=== PATIENT | male | born 1975 | race Caucasian/White ===

== ENCOUNTER → 2019-03-27 16:16 | Outpatient (CLI) | payer OTHER, SELFPAY ==
[2019-03-27 17:47] LABS: Absolute Lymphocyte Count 1.54 X10^3/ul (0.83-4.51); Absolute Neutrophil Count 2.2 X10^3/uL (2.0-7.7); Basophil# 0.02 X10^3/uL; Basophil% 0.4 % (0-1); Eosinophil# 0.24 X10^3/uL; Eosinophils% 5.2 % (0-5); Hematocrit 44.4 % (40-54); Hemoglobin 15.5 g/dl (13.0-16.5); Lymphocyte # 1.54 X10^3/ul (4.0); Lymphocyte % 33.3 % (19-41); Mean Corp Hgb Conc 34.9 g/gl (32-36); Mean Corpuscular Hgb 31.6 pg (27.0-32.0); Mean Corpuscular Volume 90.6 fL (80-94); Mean Platelet Vol. 10.1 fl (6.2-12.0); Monocyte# 0.62 X10^3/uL; Monocyte% 13.4 % (0-10); Neutrophil % 47.7 % (47-70); Platelet Count 209 K/mm3 (150-450); RBC Distribution Width SD 42.4 fl (35.1-43.9); White Blood Count 4.6 K/mm3 (4.4-11.0)
[2019-03-27 17:57] LABS: POSITIVE COUNT NO; POSITIVE DIFFERENTIAL NO; POSITIVE MORPHOLOGY NO
[2019-03-27 18:15] LABS: ALB/GLOB Ratio 1.1 RATIO (0.9-2.4); AST(SGOT) 27 U/L (15-37); Alanine Aminotransfer ALT/SGPT 34 U/L (16-61); Alkaline Phosphatase 54 U/L (45-117); Anion Gap 6 (5-15); BUN 12 mg/dL (7-18); BUN/Creat Ratio 11.7 RATIO (10-20); Calcium,Total 8.6 mg/dL (8.5-10.1); Chloride 107 mmol/L (98-107); Creatinine, Serum 1.03 mg/dL (0.70-1.30); EST Glomerular Filtration Rate 84 mL/min (>60); Est Glom Filt Rate - Afr Amer 102 mL/min (>60); Globulin 3.5 g/dL (2.2-4.2); Glucose 75 mg/dL (74-106); Potassium 4.2 mmol/L (3.5-5.1); Protein, Total 7.5 g/dL (6.4-8.2); Sodium Level 141 mmol/L (136-145); Thyroid Stim Hormone (TSH) 0.94 uIU/mL (0.358-3.74)
[2019-03-27 19:19] LABS: Vitamin B12 356 pg/mL (211-911)
== END ==
PROVIDERS: Family Provider Family Medicine; PCP Family Medicine; Referring Provider Family Medicine; Visit Provider Family Medicine
DX: J43.9 Emphysema, unspecified (principal); R53.83 Other fatigue
CPT/HCPCS: 36415; 80053; 82306; 82607; 84403; 84443; 85025

== ENCOUNTER → 2020-08-05 14:23 | Outpatient (CLI) | payer OTHER, SELFPAY ==
--- NOTE | 2020-08-05 14:30 | RAD_ITS ---
STUDY: X-RAY - RIGHT FOOT CLINICAL: Male, 44 years old. Pain lateral and top of foot. Possible injury 3-4 months ago. TECHNIQUE: 3 view(s) of the foot with weightbearing. COMPARISON: None. FINDINGS: Normal talus, calcaneus, and tarsal bones. Normal visualized subtalar, talonavicular, calcaneocuboid, tarsal and tarsometatarsal articulations. Normal metatarsi. Normal metatarsophalangeal joint of the great toe. Normal tibial and fibular sesamoid bones. Normal interphalangeal joint of the great toe. Normal phalanges of the great toe. Normal second through fifth metatarsophalangeal joints. Normal interphalangeal joints and phalanges of the lesser toes. The soft tissue structures are unremarkable. RAD/Foot min 3 Views IMPRESSION: Normal x-ray examination of the foot. Electronically Signed: Catarino Mckinney MD at 3:56 EDT , Service support ,
== END ==
PROVIDERS: PCP Family Medicine; Referring Provider Family Medicine; Visit Provider Family Medicine
DX: M79.671 Pain in right foot (principal)
CPT/HCPCS: 73630

== ENCOUNTER → 2021-05-05 12:05 | Outpatient (CLI) | payer OTHER, SELFPAY ==
--- NOTE | 2021-05-05 13:35 | NEURO ---
NCS and/or EMG Patient Report Ordering Doctor: Merlin Burns DATE OF SERVICE: 05/05/21 Kevin presents for electrodiagnostic testing of the upper limbs. He has numbness and tingling, worse in the right hand. Has a history of neck pain. Electrodiagnostic testing: Prolonged right median motor latency with normal amplitude and conduction velocity. Normal left median motor response. Normal ulnar motor response bilaterally. Prolonged median sensory latency at the right wrist. Normal ulnar and radial sensory responses.On needle EMG, decreased recruitment noted in the left triceps. Electrodiagnostic impression: This is an abnormal study. 1. Electrodiagnostic findings demonstrate right-sided median mononeuropathy. This is consistent with a mild to moderate right carpal tunnel syndrome.There is no electrodiagnostic evidence for a left-sided carpal tunnel syndrome. 2.No electrodiagnostic evidence is noted for cervical radiculopathy.
== END ==
PROVIDERS: PCP Family Medicine; Referring Provider Family Medicine; Visit Provider Family Medicine
DX: G56.01 Carpal tunnel syndrome, right upper limb (principal)
CPT/HCPCS: 95886; 95913

== ENCOUNTER 2021-11-01 08:36 | Outpatient (CLI) | payer BC, SELFPAY ==
[2021-11-01 10:00] LABS: Hematocrit 42.8 % (40-54); Hemoglobin 14.8 g/dL (13.0-16.5); Mean Corp Hgb Conc 34.6 g/dL (32-36); Mean Corpuscular Hgb 32.1 pg (27.0-32.0); Mean Corpuscular Volume 92.8 fL (80-94); Mean Platelet Vol. 10.2 fl (6.2-12.0); Platelet Count 207 K/mm3 (150-450); RBC Distribution Width CV 12.2 % (11.6-14.6); RBC Distribution Width SD 41.7 fl (35.1-43.9); Red Blood Count 4.61 M/mm3 (4.6-6.2); White Blood Count 5.2 K/mm3 (4.4-11.0)
[2021-11-01 10:28] LABS: Vitamin D,25 Hydroxy 46.7 ng/mL
[2021-11-01 10:36] LABS: AST(SGOT) 19 U/L (15-37); Alanine Aminotransfer ALT/SGPT 26 U/L (16-61); Albumin, Serum 3.9 g/dL (3.2-5.0); Alkaline Phosphatase 56 U/L (45-117); Anion Gap 6 (5-15); BUN 15 mg/dL (7-18); BUN/Creat Ratio 16.2 RATIO (10-20); Calcium,Total 8.9 mg/dL (8.5-10.1); Chloride 107 mmol/L (98-107); Creatinine, Serum 0.93 mg/dL (0.70-1.30); EST Glomerular Filtration Rate 94 mL/min (>60); Est Glom Filt Rate - Afr Amer 114 mL/min (>60); Globulin 3.9 g/dL (2.2-4.2); Glucose 97 mg/dL (74-106); Potassium 3.8 mmol/L (3.5-5.1); Protein, Total 7.8 g/dL (6.4-8.2); Sodium Level 140 mmol/L (136-145)
== END 2021-11-01 23:59 | disposition short-term general hospital (02) ==
LOC: MFPLAB 08:38
PROVIDERS: PCP Family Medicine; Visit Provider Family Medicine
DX: K64.9 Unspecified hemorrhoids (principal); E55.9 Vitamin D deficiency, unspecified
CPT/HCPCS: 36415; 80053; 82306; 85027

== ENCOUNTER 2021-12-28 05:44 | Day surgery (SDC) | payer BC, SELFPAY ==
[2021-12-28 06:23] VITALS: BP 95/68; PULSE 63; RESP 18; TEMP 36.7; O2SAT 98; BMI 22.1
[2021-12-28] MEDS: Lactated Ringers 1,000 ML 15 ML IV (06:47)
--- NOTE | 2021-12-28 07:09 | HP.PCM_ITS ---
History and Physical Date of Admission: 12/28/21 Date of Service: 06/21/21 MR#:[id number]: AI SILVA [facility] #[id number] Provider:Dr. Mumtaz Vazquez DOAge/Sex: 45/M Location:[facility]:Signed Intake Intake Visit Reasons: RIGHT WRIST Is patient in pain?: Yes Allergies No Known Allergies Allergy (Verified 06/21/21 08:06) Medications NK 06/16/21 [History Confirmed 06/21/21] PFSH Family History (Updated 06/16/21 @ 09:35 by Donna Huffman) Father Hypertension Cancer Social History (Updated 06/16/21 @ 09:35 by Donna Huffman) Smoking Status: Current every day smoker HPI RIGHT WRIST Details: Parts of this documentation were recorded by a scribe, this documentation accurately reflects the service provided and the decisions made by me, Dr. Mumtaz Vazquez, 06/21/21 0747. AI SILVA is a 45 year old M here today for right carpal tunnel syndrome. He continues to have numbness and tingling into his index and middle finger. Patient has numbness over his entire hand. He has increased pain sleeping at night. Patient notes that he also has numbness into his fingers when driving. Patient notes that his fingers go white when he is cold in his bilateral hands, only in the winter. 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 He has wrist splints which he wears which have not give him significant relief in the past. He had an EMG . Patient has a known cervical spine issue. 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 He denies any formal physical therapy. [place] [facility] [place] and Reports tingling Neuro Yes numbness and Yes tingling Ortho Exam General General: Yes no acute distress Neurologic: Yes alert Psychologic: Yes reasonable and appropriate Right Wrist/Hand Skin/Wound: Yes CDI, No Swelling, No Ecchymosis, Yes nail intact and Yes cap illary refill normal Right Wrist: Yes Durken's Test (minimal numbness), Tinel's (minimal into hand) and Phalen's WRIST: negative addsons, negative john Palpable radial pulse 2 out of 4 no thenar or hypothenar atrophy no masses appreciated in the hand or wrist Left Wrist/Hand Skin/Wound: No Swelling and No Ecchymosis Office Procedures Ortho Injections Injections Yes Carpal Tunnel Injection Right Details: Obtained consent for injection. Under sterile conditions, injected the patients right carpal tunnel with 1/2cc bupivacaine and 1/2cc depomedrol. The patient tolerated the injection well without any noted complication. Patient should call our office if redness develops, pain worsens or if they have any concerns. 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 Electrodiagnostic findings demonstrate right- sided median mononeuropathy. This is consistent with a mild to moderate right carpal tunnel syndrome.There is no electrodiagnostic evidence for a left-sided carpal tunnel syndrome. 2.No electrodiagnostic evidence is noted for cervical radiculopathy. Coding Level of Care Code Off vis,est,level 3 Diagnoses Right carpal tunnel syndrome G56.01 CPT Codes fish [email or web address] ([id number]) Assessment and Plan Assessment and Plan (1) Right carpal tunnel syndrome: Orders: Orders: Ortho Injections Today Plan - Dr. Mumtaz Vazquez DO: Educated the patient about the anatomy of the hand and etiology of his pain. Spoke with him about the double crush phenomenon. Educated the patient about a carpal tunnel injection being therapeutic vs diagnostic. If he has relief with the injection, he would benefit from a carpal tunnel release. Spoke with him about the surgery procedure and recovery process. Explained he should do nerve glides and he should continue with night splinting. Follow up on an as needed basis or sooner if pain, swelling, numbness or associated symptoms, or concerns develop. All questions answered. Patient in agreement of plan. 06/21/21 0919<Electronically signed by Mumtaz Vazquez DO>Date Mumtaz Abad Signature:Date (if applicable) CC: ~ I have re-examined the patient. There are no clinical changes since date of exam
--- NOTE | 2021-12-28 07:11 | EX.PCM.DISCH ---
Discharge Instructions Diet Discharge Diet: No restrictions Activity Keep extremity elevated above heart level: Operative Extremity Dressing / Incision Call your doctor if you observe: Shortness of breath and Chest pain Remove Dressing in: 2 days Additional Dressing/Incision Instructions:: Ice and elevate operative extremity next 72 hours. Keep dressing on clean and dry for 48 hours then may remove and allow warm soapy water to rinse over incision but do not submerge until sutures are out. Then apply bandaid over incision and change daily. encourage finger range of motion. Not lift more than 1/2 pound. Minimize narcotic use only as needed and directed, may use OTC NSAID and Tylenol to supplement/substitute for pain control. Follow Up Care Please Follow Up With: Mumtaz Vazquez DO When: 2 weeks Test Results: Test results from this visit will be discussed in further detail at your follow-up appointment, if applicable. Discharge Plan Admission Attending Provider: Mumtaz Vazquez Primary Care Provider: Merlin Burns Discharge Orders/Prescriptions Prescriptions: New oxycodone 5 mg tablet 5 mg PO Q4H PRN (Reason: pain) 3 Days Qty: 15 RF: 0 No Action gabapentin 300 mg capsule 300 mg PO QHS RF: 0 multivitamin Tablet 1 tab PO DAILY RF: 0 Referrals / Follow Up: Merlin Burns MD [Primary Care Provider] - Disposition Disposition (needs filled in before D/C Order can be placed): Home, Self Care
[2021-12-28] MEDS: Cefazolin 2 GM in 0.9% Normal Saline 100 ML IV (07:15)
[2021-12-28] MEDS: Lidocaine 1%/Epi 1:200 (30ml) 30 ML AMPUL (07:28)
--- NOTE | 2021-12-28 07:35 | PCM.OPRPT ---
Report of Operation Date of Procedure: 12/28/21 Description of Surgical Findings:: Preoperative diagnosis; right carpal tunnel syndrome Postoperative diagnosis; same Procedure: Right open carpal tunnel release Anesthesia: Local with MAC Tourniquet time; 10 minutes 250 mm Hg Complications: None Indication for procedure; This is a 46-year-old male with long-standing symptoms consistent with carpal tunnel syndrome the patient did have electrodiagnostic evidence of this and has failed conservative treatment. Risks benefits and alternatives were reviewed including risks of bleeding infection nerve artery tissue damage need for further surgery and continued pain and symptoms, hypersensitivity to scar and Pillar pain. Procedure; The patient was met in the preoperative holding area the operative extremity was identified by both patient and physician and was marked the patient was met by anesthesia and brought back to the operating room and transferred to the operating table in the supine position. Anesthesia was started. A well-padded tourniquet was placed on the operative upper extremity. The patient was prepped and draped in the usual sterile fashion. A timeout was called to ensure the proper patient procedure and extremity were being contemplated. 0.5 percent lidocaine with epinephrine was injected into the incisional area. An Esmarch was used to exsanguinate the extremity. The tourniquet was inflated to 250 mmHg. A midline incision was made with a 15 blade scalpel between the thenar and hypothenar eminence. This was carried down through the skin and subcutaneous tissue. Ishmael retractors were then used, a deep blade scalpel was used to make a deep incision in the palmar aponeurosis. The ishmael retractors were then placed deep to this and the transverse carpal ligament was identified a perforation was made with a scalpel and a Littler scissors were used to complete the release of the transverse carpal ligament distally under direct visualization with the tips facing ulnarly until the perivascular fat was reached. Then turning our attention proximally using a tension slide technique the proximal extent of the transverse carpal ligament was released . There was noted to be hypertrophy of the transverse carpal ligament without other findings. The wound was thoroughly irrigated and was closed with 4-0 nylon vertical mattress stitches. Dressing was applied in the form of xeroform 4 x 4, web roll and an jossue wrap. Tourniquet was let down there is no intraoperative complications patient tolerated the procedure well and was transferred to the PACU. All counts were correct.
[2021-12-28 07:47] VITALS: BP 93/62; BP 95/68; PULSE 68; RESP 16; TEMP 36.3; O2SAT 96
[2021-12-28 07:50] VITALS: BP 93/64; BP 95/68; PULSE 73; RESP 16; O2SAT 97
[2021-12-28 07:55] VITALS: BP 95/68; BP 97/70; PULSE 68; RESP 16; O2SAT 97
[2021-12-28 08:00] VITALS: BP 95/68; BP 98/77; PULSE 64; RESP 16; O2SAT 97
[2021-12-28 08:03] VITALS: BP 112/73; BP 95/68; PULSE 61; RESP 16; TEMP 36.6; O2SAT 98
== END 2021-12-28 23:59 | disposition home or self-care (01) ==
LOC: SDC 05:45 → AC 05:45
PROVIDERS: PCP Family Medicine; Referring Provider Orthopaedic Surgery; Visit Provider Orthopaedic Surgery
PROC: (CPT 64721; principal; 2021-12-28 07:00)
DX: G56.01 Carpal tunnel syndrome, right upper limb (principal); F17.200 Nicotine dependence, unspecified, uncomplicated
CPT/HCPCS: 64721; 87426; C9803; J7120; J2405